=== PATIENT | male | born 1965 | race Native Hawaiian/Other Pacific Islander ===

== ENCOUNTER 2019-01-10 12:21 | Inpatient (IN) | payer MEDICAID ==
[~2019-01-10] VITALS: Ht 167.6 cm; Wt 83.9 kg
--- NOTE | 2019-01-10 13:06 | NUR ---
ADMISSION NOTE Received Direct admit patient from [facility] via ambulance. Patient admitted with diagnosis of appendix. Patient oriented to hospital routine, call light, toileting and safety-patient verbalized understanding.
[2019-01-10 13:09] VITALS: BP_SYST 141
[2019-01-10 13:32] VITALS: BP_SYST 141
--- NOTE | 2019-01-10 13:34 | NUR ---
Initial physical assessment: Patient awake, alert and oriented. Stable. Greek speaking with little Turkmen. Nephew at bedside. Ambulatory.No skin issues. Call light within reach. Safety measures in placed.
--- NOTE | 2019-01-10 13:42 | NUR ---
MD WOODARD PAGED CEASAR BUNCH AT [phone] SPOKE WITH LUCIA.
--- NOTE | 2019-01-10 14:16 | NUR ---
rounds: Patient resting on bed. denies pain. family at bedside.
[2019-01-10] MEDS ORDERED: MORPHINE 4 MG/ML INJ. SYRINGE IVP PRN (14:30)
[2019-01-10] MEDS ORDERED: ONDANSETRON HCL 4 MG/2 ML VIAL IVP PRN ×2 (14:30→20:00)
[2019-01-10] MEDS ORDERED: HYDROmorphone 1 MG INJ. 1 MG/ML AMPUL IVP PRN (14:30)
[2019-01-10 15:18] LABS: BASOPHILS % (AUTO) 0.2 % (0.0-2.0); HEMATOCRIT 40.7 % (36-54); HEMOGLOBIN 13.5 g/dL (14.0-18.0); LYMPHOCYTES # (AUTO) 0.6 K/uL (1.0-5.5); LYMPHOCYTES % (AUTO) 6.3 % (20.5-51.5); MEAN CORPUSCULAR HEMOGLOBIN 28 pg (27-31); MEAN CORPUSCULAR HGB CONC 33 % (32-36); MEAN CORPUSCULAR VOLUME 84 fL (79.0-98.0); MONOCYTES # (AUTO) 0.5 K/uL (0.0-1.0); MONOCYTES % (AUTO) 4.8 % (1.7-9.3); NEUTROPHILS # (AUTO) 9.2 K/uL (1.8-7.7); NEUTROPHILS % (AUTO) 88.7 % (40.0-70.0); PLATELET COUNT (AUTO) 209 K/uL (130-430); RED BLOOD CELL COUNT(AUTO) 4.84 MIL/uL (4.2-6.2); RED CELL DISTRIBUTION WIDTH 12.9 % (9.0-15.0); WHITE BLOOD COUNT (AUTO) 10.3 K/uL (4.8-10.8)
[2019-01-10 15:27] LABS: ALBUMIN 2.8 g/dL (3.4-4.8); CALCIUM 8.3 mg/dL (8.4-11.0); CREATININE 0.97 mg/dL (0.55-1.30); INR 1.1 (0.80-1.20); POTASSIUM 3.9 mmol/L (3.5-5.1); PROTHROMBIN TIME 11.4 SECS (9.5-12.5); TOTAL BILIRUBIN 1.2 mg/dL (0.0-1.0)
[2019-01-10] MEDS: D5NS 1,000 ML IV SCH ×2 (16:10→22:35)
--- NOTE | 2019-01-10 16:38 | NUR ---
rounds: Patient resting on bed. no distress noted.
[2019-01-10 16:40] VITALS: BP_SYST 114
--- NOTE | 2019-01-10 17:32 | NUR ---
rounds: patient sleeping. no distress noted.
--- NOTE | 2019-01-10 18:45 | NUR ---
Transfer to OR: Patient transferred to OR for appendectomy.
[2019-01-10] MEDS ORDERED: NS IRRIG SOLN 1000 ML IR ONE (19:00)
[2019-01-10] MEDS ORDERED: LR 1,000 ML IV.SOLN IV ONE (19:00)
[2019-01-10] MEDS ORDERED: KETOROLAC TROMETHAMINE 30 MG VIAL IVP ONE (19:00)
[2019-01-10] MEDS ORDERED: SEVOFLURANE 15 MIN GAS INH ONE (19:00)
[2019-01-10] MEDS ORDERED: PIPERACILLIN/TAZOBACTAM 4.5 GM/VIAL (ZOSYN) IV ONE (19:00)
[2019-01-10] MEDS ORDERED: BUPIVACAINE /PF 0.25% 30 ML VIAL INJ ONE (19:00)
[2019-01-10] MEDS ORDERED: PROPOFOL 200MG/ 20ML VIAL (DIPRIVAN) IV ONE ×2 (19:00)
[2019-01-10] MEDS ORDERED: ROCURONIUM BROMIDE 10 MG/ML (ZEMURON) IV ONE (19:00)
[2019-01-10] MEDS ORDERED: MIDAZOLAM HCL 5 MG/5 ML VIAL IVP ONE (19:00)
[2019-01-10] MEDS ORDERED: ONDANSETRON HCL 4 MG/2 ML VIAL IVP ONE (19:00)
--- NOTE | 2019-01-10 19:30 | NUR ---
OPENING NOTE RECEIVED CARE OF PT AND SBAR REPORT. PT IS IN O.R. AT THIS TIME.
[2019-01-10] MEDS ORDERED: KETOROLAC TROMETHAMINE 30 MG VIAL IVP PRN (20:00)
[2019-01-10] MEDS ORDERED: fentaNYL CITRATE/PF 100 MCG/2 ML AMP IVP PRN ×2 (20:00)
[2019-01-10 20:34] VITALS: BP_SYST 114
[2019-01-10] MEDS ORDERED: HYDROcodone/ACETAMIN 7.5-325 MG TAB PO PRN (20:45)
[2019-01-10] MEDS: PIPERACILLIN/TAZO 4.5GM/DEX-IS 100 ML IV SCH (22:00)
[2019-01-10 22:05] VITALS: BP_SYST 106
--- NOTE | 2019-01-10 22:05 | NUR ---
RETURN TO UNIT RECEIVED CARE OF PT AND REPORT FROM PLATE MOUNTER, MNADY. PT IS RESTING IN BED, AAOX4, VSS. PT DENIES PAIN AT THIS TIME. 4 LAP SITES NOTED ON ABDOMEN, DRESSINGS ARE CLEAN/DRY/INTACT. VELA CATHETER IS INTACT AND DRAINING WELL TO GRAVITY. NO S/S OF ACUTE DISTRESS, BREATHING IS UNLABORED TO ROOM AIR. SAFETY PRECAUTIONS ARE IN PLACE: BED IS LOCKED TO LOWEST POSITION, SIDE RAILS UP X3, CALL LIGHT IS WITH PT, BED ALARM ON. WILL MONITOR CLOSELY.
[2019-01-11 00:50] VITALS: BP_SYST 102
--- NOTE | 2019-01-11 01:30 | NUR ---
RN NOTE PT RESTING IN BED. VSS. NO S/S OF DISTRESS. PT DENIES PAIN. SAFETY MAINTAINED. WILL MONITOR.
--- NOTE | 2019-01-11 03:40 | NUR ---
RN NOTE: PT SLEEPING. NO S/S OF DISTRESS. SAFETY PRECAUTIONS MAINTAINED. WILL MONITOR.
[2019-01-11] MEDS: D5NS 1,000 ML IV SCH ×3 (04:47→22:17)
--- NOTE | 2019-01-11 05:05 | NUR ---
RESTING PT RESTING IN BED, PT DENIES PAIN OR DISCOMFORT. IVF INFUSING ORDERED, PT TOLERATING WELL. BREATHING UNLABORED TO ROOM AIR. SAFETY PRECAUTIONS OBSERVED. WILL MONITOR.
[2019-01-11] MEDS: PIPERACILLIN/TAZO 4.5GM/DEX-IS 100 ML IV SCH ×3 (05:06→22:05)
[2019-01-11 05:56] LABS: CALCIUM 7.9 mg/dL (8.4-11.0); CREATININE 1.03 mg/dL (0.55-1.30); POTASSIUM 3.8 mmol/L (3.5-5.1)
[2019-01-11 06:00] LABS: BASOPHILS % (AUTO) 0.2 % (0.0-2.0); EOSINOPHILS % (AUTO) 0.1 % (0.0-4.0); HEMATOCRIT 38.7 % (36-54); HEMOGLOBIN 12.9 g/dL (14.0-18.0); LYMPHOCYTES # (AUTO) 0.7 K/uL (1.0-5.5); LYMPHOCYTES % (AUTO) 7.3 % (20.5-51.5); MEAN CORPUSCULAR HEMOGLOBIN 28 pg (27-31); MEAN CORPUSCULAR HGB CONC 33 % (32-36); MEAN CORPUSCULAR VOLUME 85 fL (79.0-98.0); MONOCYTES # (AUTO) 0.5 K/uL (0.0-1.0); MONOCYTES % (AUTO) 5.6 % (1.7-9.3); NEUTROPHILS # (AUTO) 8.1 K/uL (1.8-7.7); NEUTROPHILS % (AUTO) 86.8 % (40.0-70.0); PLATELET COUNT (AUTO) 208 K/uL (130-430); RED BLOOD CELL COUNT(AUTO) 4.57 MIL/uL (4.2-6.2); RED CELL DISTRIBUTION WIDTH 13.1 % (9.0-15.0); WHITE BLOOD COUNT (AUTO) 9.3 K/uL (4.8-10.8)
--- NOTE | 2019-01-11 07:13 | NUR ---
CLOSING NOTE PT IS RESTING IN BED, AAOX4, VSS. PT DENIES PAIN AT THIS TIME. 4 LAP SITES ON ABDOMEN, DRESSINGS ARE CLEAN/DRY/INTACT. VELA CATHETER IS INTACT AND DRAINING WELL TO GRAVITY. NO S/S OF ACUTE DISTRESS, BREATHING IS UNLABORED TO ROOM AIR. SAFETY PRECAUTIONS ARE IN PLACE: BED IS LOCKED TO LOWEST POSITION, SIDE RAILS UP X3, CALL LIGHT IS WITH PT, BED ALARM ON. PT HAS DENIED PAIN THROUGHOUT SHIFT. ALL NEEDS MET. WILL ENDORSE TO DAY SHIFT RN.
--- NOTE | 2019-01-11 07:45 | NUR ---
opening note patient is resting in bed, alert and oriented, assessment completed, educated bus info consultant light system and plan of care, patient verbalized understanding, IV fluids running, patient denies any pain at this time, no other needs addressed at this time, fall/safety precautions in place.
[2019-01-11 08:00] VITALS: BP_SYST 107
--- NOTE | 2019-01-11 09:55 | NUR ---
rounds patient is resting in bed, no needs addressed at this time, fall/safety precautions in place, IV fluids running, patient denies any pain.
--- NOTE | 2019-01-11 11:05 | NUR ---
rounds patient is resting in bed, no needs addressed at this time, fall/safety precautions in place, IV fluids running, patient denies any pain, informed him that I will be taking his vera out after lunch and he has to void on his own within 6 hours after taking it out, patient verbalized understanding.
[2019-01-11 12:27] VITALS: BP_SYST 121
--- NOTE | 2019-01-11 13:00 | NUR ---
DC vera vera was removed, educated patient to call when he voids or has a BM in the bathroom, patient verbalized understanding, IV fluids running, fall/safety precautions in place.
--- NOTE | 2019-01-11 15:10 | NUR ---
rounds patient informed me that he walks to the bathroom and has gas but has not been able to void or have a BM yet, will continue to monitor, IV fluids running, fall/safety precautions in place.
[2019-01-11 16:27] VITALS: BP_SYST 129
--- NOTE | 2019-01-11 17:05 | NUR ---
rounds patient is sitting on the edge of the bed, patient was able to void in the bathroom, IV fluids running, no needs addressed at this time, fall/safety precautions in place.
--- NOTE | 2019-01-11 18:47 | NUR ---
closing note patient is resting in bed, IV fluids running, patient denies any pain at this time, no needs addressed at this time, fall/safety precautions in place, patient was able to void after taking out the vera, will endorse report to noc shift nurse to continue with care, DR Cervantes still has not come by for rounds.
--- NOTE | 2019-01-11 19:32 | NUR ---
OPENING NOTE RECEIVED CARE OF PT. PT IS AAOX4, WITH FAMILY AT BEDSIDE. NO S/S OF DISTRESS. PT IS TOLERATING ROOM AIR. IVF INFUSING AT ORDERED RATE. DRESSING TO ABDOMINAL INCISIONS ARE CLEAN/DRY/INTACT. PT ORIENTED TO USE OF CALL LIGHT AND ENCOURAGED TO CALL FOR ASSISTANCE. SAFETY PRECAUTIONS ARE IN PLACE. BED IS LOCKED IN LOWEST POSITION. SIDE RAILS UP X2. CALL LIGHT IS WITH PT. WILL MONITOR.
[2019-01-11 20:00] VITALS: BP_SYST 118
--- NOTE | 2019-01-11 22:05 | NUR ---
ANTIBIOTIC SCHEDULED ZOSYN ADMINISTERED. MEDICATION EXPLAINED TO PT. NO SIGN OF ADVERSE REACTION. PT RESTING IN BED. NO S/S OF ACUTE DISTRESS. PT DENIES PAIN AT THIS TIME. PT DENIES FURTHER NEEDS. SAFETY AND FALL PRECAUTIONS MAINTAINED. WILL MONITOR.
--- NOTE | 2019-01-12 00:05 | NUR ---
SNACKS PT BROUGHT SUGAR-FREE JELLO PER REQUEST. PT DENIES FURTHER NEEDS. SAFETY MAINTAINED. WILL MONITOR.
[2019-01-12 01:52] VITALS: BP_SYST 126
--- NOTE | 2019-01-12 02:15 | NUR ---
RN ROUNDS: PT RESTING IN BED WITH NO S/S OF ACUTE DISTRESS. VISIBLE SYMMETRICAL RISE AND FALL OF CHEST TO ROOM AIR. IVF INFUSING ORDERED. SAFETY PRECAUTIONS OBSERVED. WILL MONITOR.
--- NOTE | 2019-01-12 05:27 | NUR ---
ANTIBIOTIC SCHEDULED ZOSYN ADMINISTERED. PT RESTING IN BED. NO S/S OF ACUTE DISTRESS. PT DENIES PAIN AT THIS TIME. PT DENIES FURTHER NEEDS. SAFETY AND FALL PRECAUTIONS MAINTAINED. WILL MONITOR.
[2019-01-12] MEDS: D5NS 1,000 ML IV SCH (05:29)
[2019-01-12] MEDS: PIPERACILLIN/TAZO 4.5GM/DEX-IS 100 ML IV SCH (05:29)
[2019-01-12 06:01] LABS: BASOPHILS % (AUTO) 0.1 % (0.0-2.0); EOSINOPHILS # (AUTO) 0.1 K/uL (0.0-0.4); EOSINOPHILS % (AUTO) 0.8 % (0.0-4.0); HEMATOCRIT 39.8 % (36-54); HEMOGLOBIN 13.1 g/dL (14.0-18.0); LYMPHOCYTES # (AUTO) 0.7 K/uL (1.0-5.5); LYMPHOCYTES % (AUTO) 6.8 % (20.5-51.5); MEAN CORPUSCULAR HEMOGLOBIN 28 pg (27-31); MEAN CORPUSCULAR HGB CONC 33 % (32-36); MEAN CORPUSCULAR VOLUME 85 fL (79.0-98.0); MONOCYTES # (AUTO) 0.5 K/uL (0.0-1.0); MONOCYTES % (AUTO) 4.8 % (1.7-9.3); NEUTROPHILS # (AUTO) 9.1 K/uL (1.8-7.7); NEUTROPHILS % (AUTO) 87.5 % (40.0-70.0); PLATELET COUNT (AUTO) 221 K/uL (130-430); RED BLOOD CELL COUNT(AUTO) 4.69 MIL/uL (4.2-6.2); WHITE BLOOD COUNT (AUTO) 10.4 K/uL (4.8-10.8)
--- NOTE | 2019-01-12 07:34 | NUR ---
CLOSING NOTES PATIENT RESTING IN BED. NO DISTRESS NOTED. IVF INFUSING. PATIENT NEEDS ATTENDED. CALL LIGHT WITH IN REACH. SAFETY MAINTAINED. CARE ENDORSED TO DAY SHIFT RN.
--- NOTE | 2019-01-12 07:40 | NUR ---
opening note patient is resting in bed, alert and oriented, assessment completed, educated data processing consultant light system and plan of care, patient verbalized understanding, patient stated he actually has not been able to pass gas, will page DR Cervantes about it to see if he still wants him to go home or not, no other needs addressed at this time, fall/safety precautions in place.
[2019-01-12 08:12] VITALS: BP_SYST 143
[2019-01-12] MEDS ORDERED: ENOXAPARIN SODIUM 40 MG/0.4 ML SYRINGE SUBCUT SCH (09:00)
[2019-01-12] MEDS ORDERED: HYDR-4272 PO (09:16)
[2019-01-12] MEDS ORDERED: AUG875 PO (09:17)
[2019-01-12] MEDS ORDERED: METR500T PO (09:17)
--- NOTE | 2019-01-12 10:03 | NUR ---
Dr Cervantes called back informed him about patient not passing gas yet, he said it is okay for him to go home still, I informed that patient and he verbalized understanding.
[2019-01-12 10:11] VITALS: BP_SYST 143
--- NOTE | 2019-01-12 10:35 | NUR ---
D/C Patient Patient given medication reconciliation form and D/C instructions. Exit Care provided. Patient verbalized understanding. MD discussed with patient the results and treatment provided. Ambulatory with steady gait for discharge to home. Patient in stable condition, ID band removed. IV catheter removed, intact and dressing applied, no active bleeding. Rx of norco, flagyl, and augmentin given. Patient educated on pain management. All belongings sent with patient.
== END 2019-01-12 10:35 | disposition home or self-care (01) | DRG 233 ==
LOC: SMU 12:50
PROVIDERS: ADMIT Surgery; ATTEND Surgery
PROC: 0DTJ4ZZ Resection of Appendix, Percutaneous Endoscopic Approach (ICD-10-PCS; principal; 2019-01-10 17:00)
DX: K35.33 Acute appendicitis with perforation, localized peritonitis, and gangrene, with abscess (principal); E11.65 Type 2 diabetes mellitus with hyperglycemia; E87.1 Hypo-osmolality and hyponatremia
CPT/HCPCS: 36415; 80048; 80053; 85025; 85610-TC; 85730-TC; 86886; 86900; 86901; 87081; 88304; 93005; C1727; J1650; J1885; J2250; J2405; J2543; J2704; J3490; J7030; J7042; J7120